=== PATIENT | female | born 2000 | race Caucasian/White ===

== ENCOUNTER → 2020-03-31 | Outpatient (CLI) | payer OTHER ==
--- NOTE | 2020-03-31 12:24 | US ---
EXAMINATION TYPE: US liver DATE OF EXAM: 03/31/2020 COMPARISON: NONE CLINICAL HISTORY: R74.01 ELEVATED LIVER TRANSMINASE LEVELS. EXAM MEASUREMENTS: Liver Length: 14.3 cm Gallbladder Wall: 0.1 cm CBD: 0.2 cm Right Kidney: 10.2 x 5.2 x 3.8 cm Pancreas: Partially Obscured by bowel gas Liver: No pathology seen Gallbladder: wnl Evidence for sonographic Owens's sign: No CBD: wnl Right Kidney: No hydronephrosis or masses seen IMPRESSION: 1. Normal right upper quadrant ultrasound.
== END | disposition home or self-care (01) ==
LOC: RADUSWWP 08:13
PROVIDERS: ATTEND Family Medicine
DX: R74.01 Elevation of levels of liver transaminase levels (principal)
CPT/HCPCS: 76705

== ENCOUNTER → 2021-06-25 | Outpatient (CLI) | payer OTHER ==
[2021-06-25 14:53] LABS: Follicle Stimulating Hormone 1.5 mIU/mL; Luteinizing Hormone 1.2 mIU/mL
[2021-06-25 15:42] LABS: Estradiol <5.0 pg/mL
== END | disposition home or self-care (01) ==
LOC: LABWHC1 08:55
PROVIDERS: ATTEND Pediatrics Pediatric Endocrinology
DX: Q96.3 Mosaicism, 45, X/46, XX or XY (principal); F81.9 Developmental disorder of scholastic skills, unspecified
CPT/HCPCS: 36415; 82306; 82670; 83001; 83002; 83036; 84439; 84443

== ENCOUNTER 2022-05-31 09:46 | Day surgery (SDC) | payer OTHER ==
[2022-05-26 10:59] VITALS: BMI 34.4
--- NOTE | 2022-05-30 21:10 | HP ---
HISTORY AND PHYSICAL DATE OF SURGERY: 05/31/2022. HISTORY OF PRESENT ILLNESS: Lee Ann Suarez is a 21-year-old patient seen with progressive left knee pain. We discussed options for treatment. She elected to proceed with left knee arthroscopy. Consent was obtained. PAST MEDICAL HISTORY: Hypertension. PAST SURGICAL HISTORY: Noncontributory. DAILY MEDICATIONS: Antihypertensive and multivitamin. ALLERGIES: None. SOCIAL HISTORY: She denies tobacco use. PHYSICAL EVALUATION OF THE LEFT KNEE: Range of motion is 0 to 130 degrees. There is a mild effusion present. She has tenderness along the medial and lateral joint lines. Positive medial Matt's. Ligaments stable. Hip rotation without pain. Distal neurovascular exam intact. RADIOGRAPHS: Left knee radiographs revealed a moderate osteoarthritis, left knee. MRI revealed medial meniscal tear. IMPRESSION: Internal derangement of left knee with medial meniscal tear. PLAN: Left knee arthroscopy with partial medial meniscectomy and debridement. MMODL / IJN: [id number] /
[~2022-05-31 09:46] MED LIST: DEXAMETHASONE SOD PHOSPHATE 4 MG/ML 1 ML VIAL IV ONE; HYDROmorphone 0.5 MG/0.5 ML SYRINGE IVP PRN; LIDOCAINE 1% (10MG/ML) FOR IV START INTRADERMA PRN; MIDAZOLAM 2 MG/2 ML VIAL IV PRN; ONDANSETRON 4 MG/2 ML VIAL IVP ONE
[2022-05-31] MEDS: LACTATED RINGERS 1,000 ML IV SCH ×2 (10:30→11:03)
[2022-05-31 10:51] LABS: Potassium 4.3 mmol/L (3.5-5.1)
[2022-05-31] MEDS ORDERED: ONDANSETRON 4 MG/2 ML VIAL ONE (10:51)
[2022-05-31 10:55] LABS: Basophils % (A) 0 %; Eosinophils % (A) 0 %; HCT 41.4 % (34.0-46.0); HGB 14.1 gm/dL (11.4-16.0); Lymphocytes # (A) 2.8 k/uL (1.0-4.8); Lymphocytes % (A) 32 %; MCH 30.6 pg (25.0-35.0); MCHC 34.1 g/dL (31.0-37.0); MCV 89.5 fL (80.0-100.0); Monocytes # (A) 0.4 k/uL (0-1.0); Monocytes % (A) 4 %; Neutrophils # (A) 5.4 k/uL (1.3-7.7); Neutrophils % (A) 61 %; Platelet Count 321 k/uL (150-450); RBC 4.62 m/uL (3.80-5.40); RDW 12.4 % (11.5-15.5); WBC 8.7 k/uL (3.8-10.6)
[2022-05-31] MEDS ORDERED: fentaNYL (PF) 50 MCG/ML 2 ML AMP ONE (11:06)
[2022-05-31] MEDS ORDERED: LIDOCAINE 2% INJ 20 MG/ML (2 ML VIAL) ONE (11:06)
[2022-05-31] MEDS ORDERED: SUCCINYLCHOLINE CHLORIDE 200 MG/10 ML VIAL IV ONE (11:06)
[2022-05-31] MEDS ORDERED: MIDAZOLAM 2 MG/2 ML VIAL ONE (11:06)
[2022-05-31] MEDS ORDERED: KETOROLAC 30 MG/ML 1 ML VIAL ONE (11:06)
[2022-05-31] MEDS ORDERED: PROPOFOL 10 MG/ML 20 ML VIAL IV ONE (11:06)
[2022-05-31] MEDS ORDERED: BUPIVACAINE (PF) 0.25% 30 ML VIAL SQ ONE (11:30)
--- NOTE | 2022-05-31 11:48 | P.OP ---
Date of Procedure: 05/31/22 Preoperative Diagnosis: Internal derangement left knee Postoperative Diagnosis: 1. Tear medial and lateral meniscus left knee 2. Reactive synovitis medial and suprapatellar compartments left knee Procedure(s) Performed: 1. Arthroscopic partial medial and lateral meniscectomy left knee 2. Arthroscopic partial synovectomy medial and suprapatellar compartments left knee Anesthesia: ED, local Surgeon: Arnaud Freitas Estimated Blood Loss (ml): 7 Pathology: none sent Condition: stable Disposition: PACU Indications for Procedure: 21-year-old patient seen with progressive left knee pain. After treatment options were discussed with her, she elected to proceed with arthroscopy. Operative Findings: see description of procedure Description of Procedure: Patient was taken to the operative suite. Patient underwent a general anesthetic by the department of anesthesia. Patient was given preoperative antibiotics. The left lower extremity was placed in a well-padded arthroscopic leg cortez. The left leg was prepped and draped in the normal sterile orthopedic fashion. A lateral parapatellar and suprapatellar incision was made. Trochars were inserted. Arthroscopy was initiated. Suprapatellar pouch revealed some reactive synovitis diffusely. The patellofemoral joint appeared to articulate congruently. There was no chondromalacia present at the patellofemoral joint. The scope was guided into the medial gutter. No loose bodies or plica were identified. The scope was then guided into the medial compartment. A medial parapatellar incision was made. Trocar inserted followed by probe. There was a radial tear posterior horn medial meniscus. There was some reactive synovitis anteriorly. There was no evidence for chondromalacia. I performed a partial medial meniscectomy getting down to stable meniscal tissue. I performed a partial synovectomy. The residual meniscus was stable. There was good decompression of the synovitis. Scope and probe were then guided into the intercondylar notch. Cruciates were identified, probed and found to be stable. The scope and probe were then guided into lateral compartment. Was radial tear mid body lateral meniscus. There was no synovitis. There was no chondromalacia. I performed a partial lateral meniscectomy. The residual meniscus was stable. The scope was in guided back into the suprapatellar compartment. I introduced a motorized shaver into the suprapatellar compartment. I debrided some piecemeal fragments of meniscus I encountered and then performed a partial synovectomy. Shaver was removed. There was good decompression of the synovitis. I took one more look around the entire knee, no residual debris. Instruments were now removed from the joint. The joint was infiltrated with .25% Marcaine. Steri-Strips were applied to the portal sites. Sterile dressings were applied. The patient was placed into a ANDREA hose. No tourniquet was utilized. The patient was awakened, transferred to a bed and taken to recovery stable satisfactory condition.
[2022-05-31 11:55] VITALS: RESP 16; TEMP 97.6
[2022-05-31 13:40] VITALS: BP 94/65; PULSE 86
== END 2022-05-31 14:00 | disposition home or self-care (01) ==
LOC: OR 09:46
PROVIDERS: ATTEND Orthopaedic Surgery
DX: S83.242A Other tear of medial meniscus, current injury, left knee, initial encounter (principal); S83.282A Other tear of lateral meniscus, current injury, left knee, initial encounter; M65.9 Synovitis and tenosynovitis, unspecified; I10 Essential (primary) hypertension; J45.909 Unspecified asthma, uncomplicated; Z79.899 Other long term (current) drug therapy; X58.XXXA Exposure to other specified factors, initial encounter
CPT/HCPCS: 80051; 85025; 29880; J1100; J0690; J2405; 81025

== ENCOUNTER → 2022-08-16 | Outpatient (CLI) | payer OTHER | LOC: CPPFTMAIN 08:22 | PROVIDERS: ATTEND Family Medicine | DX: J45.909 Unspecified asthma, uncomplicated (principal) | CPT/HCPCS: 94060; 94726; 94729 ==

== ENCOUNTER → 2024-10-23 | Outpatient (CLI) | payer OTHER ==
--- NOTE | 2024-10-23 13:16 | CT ---
EXAMINATION TYPE: CT angio abdomen DATE OF EXAM: 10/23/2024 12:46 PM COMPARISON: None. 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 3-D reconstructed images and maximum intensity projection images were obtained on a separate works tation. CT angio abdomen CT Contrast: Contrast used:100 mL of Isovue 370 with IV Contrast, Oral contrast used: None CT DLP: 862 mGycm, Automated exposure control for dose reduction was used. FINDINGS: CTA Abdomen and pelvis: The abdominal aorta does not demonstrate aneurysmal dilatation. The origins of the superior mesenteric artery, renal arteries, inferior mesenteric artery, and celiac axis are pa tent. The iliac vessels are normal in morphology LOWER CHEST: No evidence of focal consolidation, pneumothorax or pleural effusion. LIVER: Unremarkable GALLBLADDER AND BILE DUCTS: Unremarkable. PANCREAS: Unremarkable. SPLEEN: Unremarkable. ADRENAL GLANDS: Thin adrenal glands bilaterally. No masses identified. KIDNEYS AND URETERS: No evidence of hydronephrosis or obstructing renal calculus. The ureters are unr emarkable. ABDOMEN & PELVIS STOMACH AND BOWEL: No evidence of bowel obstruction. The appendix is normal. PERITONEUM: No evidence of pneumoperitoneum or free fluid. VASCULATURE: No evidence of aortic aneurysm. MUSCULOSKELETAL: No acute osseous abnormalities LYMPH NODES: No gross evidence for lymphadenopathy. SOFT TISSUE/ABDOMINAL WALL: Unremarkable IMPRESSION: Small adrenal glands bilaterally. No masses are identified. [facility], , 10/23/2024 1:14 PM
== END | disposition home or self-care (01) ==
LOC: RADCTMAIN 11:13
PROVIDERS: ATTEND Family Medicine
DX: I10 Essential (primary) hypertension (principal); R79.89 Other specified abnormal findings of blood chemistry; E27.9 Disorder of adrenal gland, unspecified
CPT/HCPCS: 74175; Q9967

== ENCOUNTER → 2024-11-28 | Outpatient (CLI) | payer OTHER ==
[2024-11-28 15:13] LABS: HCT 39.3 % (37.2-46.3); HGB 13.4 g/dL (12.0-15.0); MCH 30.6 pg (27.0-32.0); MCHC 34.1 g/dL (32.0-37.0); MCV 89.7 FL (80.0-97.0); NRBC Per 100 WBC 0 X 10*3/uL (0.00-0.01); Platelet Count 302 X 10*3/uL (140-440); RBC 4.38 X 10*6/uL (4.10-5.20); RDW 12.3 % (11.5-14.5); WBC 7.17 X 10*3/uL (4.50-10.00)
[2024-11-28 15:23] LABS: ALT 151 U/L (8-44); AST 89 U/L (13-35); Albumin 4.1 g/dL (3.8-4.9); Albumin/Globulin Ratio 1.86 Ratio (1.60-3.17); Alkaline Phosphatase 148 U/L (41-126); Anion Gap 10.70 mmol/L (4.00-12.00); BUN/Creat Ratio 8.75 Ratio (12.00-20.00); Blood Urea Nitrogen 7.0 mg/dL (9.0-27.0); Calcium 8.9 mg/dL (8.7-10.3); Carbon Dioxide 25.3 mmol/L (21.6-31.8); Chloride 104 mmol/L (96-109); Globulin 2.2 g/dL (1.6-3.3); Glucose 94 mg/dL (70-110); Magnesium 1.8 mg/dL (1.5-2.4); Potassium 3.7 mmol/L (3.5-5.5); Sodium 140 mmol/L (135-145); Total Protein 6.3 g/dL (6.2-8.2)
== END | disposition home or self-care (01) ==
LOC: LABWHC1 08:50
PROVIDERS: ATTEND Internal Medicine Nephrology
DX: I10 Essential (primary) hypertension (principal)
CPT/HCPCS: 36415; 80053; 82043; 82570; 83735; 84100; 85027